=== PATIENT | female | born 1950 | race Caucasian/White ===

== ENCOUNTER → 2019-01-10 10:29 | Outpatient (CLI) | payer MEDICARE, SELFPAY ==
--- NOTE | 2019-01-10 | IMM_PTH ---
PATIENT: HOWARD LANZA LOC: [facility] U#:[id number] AGE/SX: 74/F ROOM: RE01/10/[address]: Dr. Eryn Peres MD : 1950 BED: DIS: SPEC #: [id number] RECD: 01/11/19 12:55 STATUS: SHARON REQ #: [id number] ESTEVAN: 01/10/19 00:[address]: Eryn Peres DEPT: IMMUNOHISTOCHEMISTRY RECD BY: Sophy Oconnor ENTERED: 01/11/19 12:56 SP TYPE: IMMUNO OTHR DR: Dr. Lizy Crowe MD Tissues: Left breast, NOS Procedures: CALPONIN-1 (add) CK8 (add) E-CAD (add) HER2 GISELLA (add) OK (add) P40 (add) ER (initial) PHYSICIAN & INSTITUTION [place] [phone] SPECIMEN INFORMATION: Tissue Source: Left breast tissue Clinical Info: Left breast 12 o'clock microcalcifications Specimen Number: [id number] #2 CPT code: 44176, 20134 x3, 49763 x3 METHODOLOGY: Deparaffinized sections of prefer/formalin-fixed tissue or PAP/DQ stained slides are incubated with monoclonal/polyclonal antibodies/oligonucleotide probes. Localization is made via biotin free immunoperoxidase method. Appropriate controls are performed and reacted as expected. Results on target cell population are indicated in the following table: RESULTS: ANTIBODY / CLONE RESULT E-Cad (ECH-6) positive CK8 ([id number]) positive P40 (BC28) positive Calponin-1 (NB105S) positive MORPHOMETRIC ANALYSIS ER (clone 6F11) Positive (variable, 0-95%, strong intensity) OK (clone 16/1E2) Positive (variable, 0-19%, moderate intensity) Her-2Neu (clone CB11) Positive (variable, 0-3+) The prognostic test for HER2 is performed on formalin-fixed paraffin embedded tissue. A 3+ (positive) staining pattern is defined as intense, homogeneous, complete, circumferential membranous staining in >10% of contiguous tumor cells. A similar weak (2+) staining pattern is interpreted as equivocal. MADHURI follow-up testing is recommended for all equivocal cases. Positivity/negativity for ER/OK is reported if > or < 1% of the tumor cells are immuno- reactive, respectively. The ASCO/CAP criteria is used for scoring. Reference: Journal of Clinical Oncology, 2013; 31:5826-4927 & 2010; 16:0381-4025. Duration of fixation: 8.5 Hrs; Sample Adequate: Yes. These assays have not been validated on decalcified tissues. Results should be interpreted with caution given the likelihood of false negativity on decalcified specimens. These tests were developed and their performance characteristics determined by [facility]. They may not have been cleared or approved by the U.S. Food and Drug Administration. The FDA has determined that such clearance or approval is not necessary. 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 SJ:radha 01/14/19
--- NOTE | 2019-01-10 11:00 | BRBX_PTH ---
PATIENT: HOWARD LANZA LOC: [facility] U#:[id number] AGE/SX: 74/F ROOM: RE01/10/[address]: Dr. Eryn Peres MD : 1950 BED: DIS: SPEC #: [id number] RECD: 01/10/19 11:37 STATUS: SHARON RERashad #: [id number] ESTEVAN: 01/10/19 11:[address]: Eryn Peres DEPT: SURGICAL PATHOLOGY RECD BY: Kevin Rea ENTERED: 01/10/19 13:38 SP TYPE: BREAST BX OTHR DR: Dr. Lizy Crowe MD Tissues: Left breast, NOS Procedures: Surgery Specimen Level IV HEADER OPERATION: Left stereotactic breast biopsy PRE-OP DIAGNOSIS: Left breast 12 o'clock microcalcifications TISSUE SUBMITTED: Left breast tissue ISCHEMIC TIME: 1 minute FIXATION TIME: 8.5 hours MICROSCOPIC DIAGNOSIS Left breast, 12 o'clock, microcalcifications, stereotactic core biopsy: Ductal carcinoma in situ with the following characteristics: Pattern - solid, comedo and cribriform Nuclear Grade - 2-3 (intermediate to high) Necrosis - present, central (expansive comedo necrosis). Calcifications - present See comment. AMINATA:radha 01/11/19 COMMENT Many of the glands are completely replaced by comedo necrosis and calcification. Immunohistochemistry ([id number]) supports the above diagnosis. ER/MN/Nof6zqy studies are being performed on sections of tumor and the results from this study will be reported separately ([id number]). Please make reference to previous specimen ([id number]) right breast, mastectomy with diagnosis of invasive ductal carcinoma. Case has been reviewed in consultation with Dr. Aguirre who concurs with the above diagnosis. IDC:AM MICROSCOPIC DESCRIPTION Slides are reviewed. GROSS DESCRIPTION Received is one container labeled with the patient's name and not further designated. The specimen consists of multiple elongated fragments of tracey-yellow fibroadipose tissue that in aggregate measure 4 x 3 x 0.3 cm. The entire specimen is submitted in two cassettes. / AMINATA:radha 01/10/19 TC:0 CPT: 96479
--- NOTE | 2019-01-10 11:34 | PCM.OPRPT ---
Report of Operation Date of Procedure: 01/10/19 Pre-Operative Diagnosis: abnormal left breast mammograms with calcifications Post-Operative Diagnosis: same Surgery/Procedure Performed:: left stereotactic breast biopsy Description of Surgical Findings:: centrally located abnormal calcifications of left breast Type of Anesthesia:: Local - 1% xylocaine Specimen's removed: left breast tissue Estimated Blood Loss (mL): < 1 ml Fluids Replaced: none Description of Procedure: After informed consent was given, the patient was brought into the breast biopsy suite. Appropriate time out protocol was followed. She was then placed in the prone position on the stereotactic biopsy table. The patient?s left breast was then placed in the hole at the head of the table. A patented hogshead assembler compression mammogram was then obtained in the CC/lateral view. The suspicious radiological lesion was then identified. Stereo pictures of the lesion were then taken for XYZ coordinates. The Mammotome biopsy stylus was then positioned where it would be entering into the patient?s breast. The skin at this site was then cleansed with a surgical skin preparation. The skin and subcutaneous tissues at this site were then infiltrated with 1% xylocaine. A small skin incision was made with an 11 blade scalpel. The biopsy stylus was then positioned into the patient?s breast at the proper coordinates of depth. Using the Mammotome vacuum-assist device, several core samples of breast tissue were obtained. A specimen mammogram was the obtained and revealed that the suspicious lesion was within the specimen. A hemostatic marker clip was then placed into the biopsy cavity and a patented hogshead assembler film revealed that it was properly deployed. The patient was then placed in the supine position and pressure was applied to the breast until no active bleeding was noted. Steristrips were applied to reapproximate the skin. A unilateral mammogram in the CC and MLO view were then taken which revealed that the marker clip was in the same area as the previous suspicious lesion. The patient tolerated the procedure well and was discharged from the breast biopsy suite in good condition. - Complications none noted
== END ==
PROVIDERS: Family Provider Internal Medicine; PCP Internal Medicine; Referring Provider Surgery; Visit Provider Surgery
DX: C50.912 Malignant neoplasm of unspecified site of left female breast (principal); G47.33 Obstructive sleep apnea (adult) (pediatric); K21.9 Gastro-esophageal reflux disease without esophagitis; E66.09 Other obesity due to excess calories; Z68.34 Body mass index [BMI] 34.0-34.9, adult; F32.9 Major depressive disorder, single episode, unspecified; F17.290 Nicotine dependence, other tobacco product, uncomplicated; Z79.82 Long term (current) use of aspirin; Z79.899 Other long term (current) drug therapy; Z85.3 Personal history of malignant neoplasm of breast; Z90.11 Acquired absence of right breast and nipple
CPT/HCPCS: 19081; 88305; 88341; 88342; J7050; A4648

== ENCOUNTER 2019-02-18 07:38 | Observation (INO) | payer MEDICARE, SELFPAY ==
[2019-02-15 15:30] LABS: Hematocrit 38.5 % (37-47); Hemoglobin 12.8 g/dL (12.0-15.0); Mean Corp Hgb Conc 33.2 g/dL (32-36); Mean Corpuscular Hgb 29.4 pg (27.0-32.0); Mean Corpuscular Volume 88.3 fL (81-99); Mean Platelet Vol. 9.4 fl (6.2-12.0); Platelet Count 335 K/mm3 (150-450); RBC Distribution Width CV 12.5 % (11.6-14.6); RBC Distribution Width SD 40.7 fl (35.1-43.9); Red Blood Count 4.36 M/mm3 (4.2-5.4); White Blood Count 7.1 K/mm3 (4.4-11.0)
[2019-02-15 15:57] LABS: Anion Gap 5 (5-15); BUN 16 mg/dL (7-18); BUN/Creat Ratio 20.8 RATIO (10-20); Calcium,Total 8.7 mg/dL (8.5-10.1); Chloride 108 mmol/L (98-107); Creatinine, Serum 0.77 mg/dL (0.55-1.02); EST Glomerular Filtration Rate 80 mL/min (>60); Est Glom Filt Rate - Afr Amer 96 mL/min (>60); Glucose 104 mg/dL (74-106); Potassium 3.5 mmol/L (3.5-5.1); Sodium Level 143 mmol/L (136-145)
--- NOTE | 2019-02-17 09:13 | HP.PCM_ITS ---
History and Physical Date of Admission: 02/18/19 Deann Steiner 1950 ? ? REFERRING PHYSICIAN: Lizy Crowe MD ? CHIEF COMPLAINT: Newly diagnosed DCIS of left breast ? HPI: Deann is s/p left stereotactic breast biopsy 01/10/19 with findings of DCIS, nuclear grade 2-3, necrosis present, ER/MA positive. She is also s/p right mastectomy and right sentinel lymph nodes - 02/06/17 for Stage I - T1b N0, ER positive She initially wanted revision of her right mastectomy - dog ears - and I have offered this to her in conjunction with her future surgery, but then she declined. ? ? PAST MEDICAL HISTORY ? Bacterial pneumonia, unspecified ? LLL ? Broken arms October 2008 ? Broken wrist October 2008 ? Carpal tunnel syndrome ? ? Cervical spondylosis without myelopathy 11/14 ? Chronic rhinitis ?? non-allergic ? Corpus luteum cyst or hematoma 08/14 left ovary 2 cysts per US and CT ? Depression ? ? Disorder of bone and cartilage, unspecified 07/16 ? per bone density study ? Esophageal reflux ?? esophagram negative ? Infiltrating ductal carcinoma of right breast (HCC) 02/17/2017 ? Myalgia and myositis, unspecified ? ? Obstructive sleep apnea (adult) (pediatric) ? 09/14 polysmngm repeated, nasal CPAP per Dr. Henderson ? Other affections of shoulder region, not elsewhere classified 04/13 ? subacromial bursitis, adhesive capsulitis left shoulder ? Other kyphoscoliosis and scoliosis 06/12 ? lumbar ? Polyp of nasal cavity 09/14 ? sinus CT ? Solitary cyst of breast ?? ruo quad, multiple mammogm ? Swelling, mass, or lump in chest ? 4cm nodule RUL CXR , negative CT except scarring LLL, mild emphusema ? Tachycardia, unspecified ? 2d echo WNL ? ? PAST SURGICAL HISTORY APPENDECTOMY ? ? COLONOSCOP W/ OR W/O BRSH SPEC ? 05/03/13 COMBINED ANT/POST COLPORRHAPHY ? ? Dr. Alicia Jasso EGD W/O OR W/BRUSH/WASH ? 05/03/13 LAP CHOLECYSTECT/CHOLANGIOGRAPHY ? 05/27/2009 ? acute/gangrenous, normal IOC LIGATE FALLOPIAN TUBE ? ? MASTEC, simple Right 02/06/2017 MA ANESTH,CLEFT PALATE REPAIR ? ? REMOVAL OF OVARY(S) ? ? REVISE MEDIAN N/CARPAL TUNNEL SURG ? 09/14 ? Carpal tunnel decomp right REVISE MEDIAN N/CARPAL TUNNEL SURG ? 10/14 ? Carpal tunnel decomp left ? ? Current Outpatient Medications: anastrozole (ARIMIDEX) 1 mg tablet Take 1 tablet by mouth daily. zolpidem (AMBIEN) 5 mg tablet Take 1/2 to 1 tablet by mouth at bedtime as needed for insomnia. omeprazole (PRILOSEC) 20 mg capsule Take 1 capsule by mouth once daily. PARoxetine (PAXIL) 20 mg tablet Take 1 tablet by mouth daily for depression potassium chloride SR (MICRO-K) 8 mEq cpER Take 1 capsule by mouth once daily. fluticasone (FLONASE) 50 mcg/actuation nasal spray Use 2 Sprays in each nostril once daily. Rinse mouth after use. ergocalciferol, vitamin D2, (DRISDOL) 50,000 unit capsule Take 1 capsule by m outh once each week. hydroCHLOROthiazide (HYDRODIURIL, ESIDRIX) 25 mg tablet Take 1 tablet by mouth daily for swollen legs polyethylene glycol 3350 (MIRALAX, GLYCOLAX) 17 gram/dose powder Take 17 g by mouth once daily. ADULT LOW DOSE ASPIRIN 81 MG ORAL TBEC Take one(1) tablet daily. loratadine (CLARITIN) 10 mg tablet Take 1 tablet by mouth once daily. COMPOUNDED PRESCRIPTION Breast prosthesis- mastectomy bra cloNIDine HCl (CATAPRES) 0.1 mg tablet Take 1 tablet by mouth once daily. (Patient not taking: Reported on 11/21/2018 hydrocortisone 2.5 % cream Apply 1 application to affected area twice daily. Location: left breast (Patient not taking: Reported on 11/21/2018 docusate sodium (COLACE) 100 mg capsule Take 1 capsule by mouth twice daily as needed for Constipation. (Patient not taking: Reported on 11/21/2018 ? ? ALLERGIES: Amoxicillin; Evista [Raloxifene Hcl]; Levaquin [Levofloxacin]; Milk; Naprosyn [Naproxen]; Septra [Sulfamethoxazole-Trimethoprim]; Vioxx [Rofecoxib]; Zithromax [Azithromycin] ? PERSONAL HISTORY: Social History Socioeconomic History Marital status: Spouse name: Terrell Number of children: 2 Years of education: 05 Occupation: Disabled Tobacco Use Smoking status: Former Smoker Packs/day: 2.00 Years: 20.00 Pack years: 40 Types: Cigarettes Quit date: 02/23/1987 Tobacco comment: Smokes an e-cigarette with nicotine. FAMILY HISTORY ? Cerebral Embolism Mother ? ? None Father ?? benign brain tumor, possible liver disease ? Cancer Brother ? ? Cancer Brother ? ? Cancer Brother ? ? Breast Cancer Sister ? REVIEW OF SYSTEMS: General: The patient denies fatigue, denies weight loss, denies weight gain, denies feeling hot, and denies feelings of cold. Eyes: The patient denies glaucoma, denies eye injury/surgery, wears glasses or contacts. Ear/Nose/Throat: The patient denies allergies, denies hayfever, denies ear infections, and denies bloody noses. Cardiovascular: The patient denies chest pain, denies heart disease, denies high blood pressure,denies cardiac stent, denies prior heart attack, denies irregular heart beat, denies high cholesterol, denies poor circulation, denies heart failure, other cardiac issues, denies claudication, denies cold feet, denies peripheral arterial stent. Respiratory: The patient denies tuberculosis, denies pneumonia, denies frequent cough, denies pulmonary embolism, denies shortness of breath, and denies coughing up blood. Gastrointestinal: The patient denies difficulty swallowing, NOTES acid reflux, NOTES ulcers, denies vomiting, denies jaundice/hepatitis, denies gallbladder problems, denies black or tarry stools, denies hemorrhoids, denies bleeding from rectum, denies diverticulitis, NOTES constipation, denies diarrhea, denies loss of stool control, and denies hernias. Kidney/Bladder: The patient denies kidney stones, denies urine infections, and denies bloody urine. Skin: The patient denies a history of skin cancer, denies bleeding/changing moles, and denies a history of skin rash. Neurologic: The patient denies a history of epilepsy/convulsions, denies headaches, denies head/spinal injuries, and denies stroke/TIA. Psychiatric: The patient denies psychiatric medications, NOTES depression, and denies voices, denies substance abuse. Endocrine: The patient denies thyroid disorders, denies diabetes, and denies hormonal problems. Hematologic: The patient denies a history of bruising, denies bleeding, and denies anemia, denies blood clots. Infections: The patient denies a history of measles and mumps, denies rheumatic fever, and denies sexually transmitted diseases. Musculoskeletal: The patient denies back pain/injury, denies back problems, denies sciatica, denies knee/foot trouble, denies arthritis, or denies ? PHYSICAL EXAMINATION: General: The patient is 68 year old female, well nourished, well hydrated in no acute distress. The patient is oriented to time, place, and person. VITALS: Blood pressure 134/66, pulse 87, temperature 36.2 ?C (97.1 ?F), temperature source Temporal, resp. rate 16, height 168.5 cm (5' 6.34), weight 95.5 kg (210 lb 9.6 oz), SpO2 96 %. Body mass index is 33.65 kg/m?. Head ? Normocephalic. EOM intact with sclera clear and no icterus noted. Mouth with mucus membranes moist. Neck - supple with no jugular venous distention noted. Trachea is midline. No carotid bruits noted. No thyroid enlargement or thyroid nodules detected. No masses noted. Chest/breast ? right breast is surgically absent - no masses noted of this area - redundant tissue noted (dog ear), no suspicious skin lesions noted, no nipple discharge on left and nipple is everted, no palpable breast masses noted on left,healed biopsy site Lungs ? clear to auscultation. Normal breath sounds. No rales/rhonchi/wheezing noted. No labored breathing noted, such as retractions. No cough heard. Heart ? normal S1 and S2 auscultated. No rubs/clicks/murmurs noted. Regular rate. Abdomen ? soft and benign. Normal bowel sounds. No abdominal bruits noted. Difficult to determine if any masses or organomegaly due to body habitus. Extremities ? no calf tenderness noted. No pitting edema noted. Skin ? normal skin integrity. Lymph ? no cervical adenopathy detected, no supraclavicular adenopathy detected, no axillary adenopathy detected Neurological ? gait normal, no focal deficits noted Psych ? calm and appropriate RADIOLOGIC STUDIES: As Noted ? ? IMPRESSION: newly diagnosed left DCIS, history of right breast cancer ? PLAN: I have discussed the above with the patient. I have offered options for treatment - lumpectomy followed by radiation therapy versus mastectomy. Patient does not want radiation. She wishes to proceed with mastectomy I have explained the procedure to the patient. I have counseled the patient as to the risks of the procedure, including but not limited to: infection, bleeding, injury to any blood vessels/nerves, scar tissue, cosmetic deformity, wound infections, seroma, lymph leak, complications of anesthesia, etc. ? the patient understands. The patient wishes to proceed. I have answered all questions to the patient?s satisfaction and the patient has no further questions. ? Return to Clinic: The patient is instructed to follow-up with me after the above procedure.
[2019-02-18] VITALS (10 sets, daily range): BP systolic 118–193; BP diastolic 66–89; PULSE 62–95; RESP 14–18; TEMP 36.4–37.3; O2SAT 2–98; BMI 33.5; BMI 33.8
[2019-02-18] MEDS: Lactated Ringers 1,000 ML 75 ML IV ×3 (07:20→15:44)
--- NOTE | 2019-02-18 07:30 | BREAST_PTH ---
PATIENT: HOWARD LANZA LOC: [facility] U#:[id number] AGE/SX: 68/F ROOM: [facility]318 RE02/18/[address]: Dr. Eryn Peres MD : 1950 BED: 1 DIS: 02/19/2019 SPEC #: [id number] RECD: 02/18/19 09:39 STATUS: SHARON REQ #: [id number] ESTEVAN: 02/18/19 07:[address]: Eryn Peres DEPT: SURGICAL PATHOLOGY RECD BY: Clint Yoon ENTERED: 02/18/19 11:17 SP TYPE: BREAST OTHR DR: Dr. Lizy Crowe MD Tissues: A - Left breast, NOS B - Right breast, NOS Procedures: Surgery Specimen Level IV Surgery Specimen Level V HEADER OPERATION: Breast mastectomy left, removal of right breast tissue, dog ear PRE-OP DIAGNOSIS: Newly diagnosed left DCIS, history of right breast cancer TISSUE SUBMITTED: A. Tissue left breast, B. Right breast dog ear MICROSCOPIC DIAGNOSIS A. Left breast, mastectomy: Ductal carcinoma in situ. Fibrocystic changes, adenosis and intraductal hyperplasia without atypia. Focal dystropic calcification. Changes consistent with previous biopsy site. See cancer summary below. B. Right breast dog ear tissue: A piece of fatty benign breast tissue, no pathologic diagnosis. Skin, no pathologic diagnosis. SJ:radha 02/21/19 DUCTAL CARCINOMA IN SITU SUMMARY: Specimen - total breast (including nipple and skin) Procedure - total mastectomy (including nipple and skin) Lymph node sampling - no lymph node present. Specimen integrity - single intact specimen Specimen laterality - left breast Tumor site - superior portion Size (extent) of DCIS - largest focus measures 2 x 1.1 cm in greatest dimension (measured microscopically) Number of blocks with DCIS - 4 Number of blocks examined - 14 Histologic type - ductal carcinoma in situ Architectural patterns - solid, comedo and cribriform pattern Nuclear grade - Grade 2-3 Necrosis - present, central (expansive comedo necrosis). Margins - margins uninvolved by ductal carcinoma in situ. The tumor is 1.2 cm away from the closest superior margin of excision. Treatment effect: Response to presurgical (neoadjuvant) therapy - no known presurgical therapy. Lymph nodes - no lymph nodes present. Additional Pathologic Findings - fibrocystic changes, adenosis and intraductal hyperplasia without atypia. Focal dystrophic calcification. Changes consistent with previous biopsy site. Ancillary Studies from previous specimen ([id number] / [id number]): ER - positive (variable, 0-95%, strong intensity) ND - positive (variable, 0-19%, moderate intensity) Her2 sabra ([facility]) - positive (variable, 0-3+) Microcalcifications - present in both DCIS and non-neoplastic tissue. Clinical history - Please make reference to previous specimen ([id number]) left breast, 12 o'clock, microcalcification, stereotactic core biopsy with diagnosis of ductal carcinoma in situ. Pathologic Staging: pTis(DCIS) pNx Mx The above summary is in compliance with [employer] [place] [employer] (CAP) Cancer Protocols Checklist and [place] [employer] Committee on Cancer (AJCC), Staging Manual, 8th Ed. COMMENT Please make reference to previous specimen ([id number]) right breast, mastectomy with diagnosis of invasive ductal carcinoma. Case has been reviewed in consultation with Dr. Aguirre who concurs with the above diagnosis. IDC:AM MICROSCOPIC DESCRIPTION Slides are reviewed. GROSS DESCRIPTION A - Received in fixative is one container labeled with the patient's name and designated left breast. The specimen consists of a mastectomy measuring 24 x 17 x 5 cm and weighing 1179 gm. The anterior surface contains grossly unremarkable skin containing nipple and areola. The skin fragment measures 19 x 9 cm. The specimen is differentially inked as follows: superior - blue, inferior - green and posterior surface - black. Serial sections reveal a tracey-white, firm lesion measuring 1.5 x 1 x 1 cm and located 1.2 cm from its closest (superior) margin of excision. Adjacent to the lesion is a gel-filled cystic space measuring 1 cm in greatest dimension. The remainder of the breast parenchyma is tracey-yellow and interrupted focally by dense, white fibrous streaks. Yacht Master sections are submitted in 14 cassettes as follows: 1 - nipple and areola, 2 - perpendicular superior and inferior margins, 3 - perpendicular medial and posterior margin, 4 - perpendicular lateral margin, 5-7 - mass, 8-10 - soft tissue adjacent to mass, 11-14 - nutrition representative sections of uninvolved breast parenchyma away from mass. Note, sections are submitted after additional fixation. / AM:radha 02/19/19 B - Received in fixative is one container labeled with the patient's name and designated right breast dog ear tissue. The specimen consists of an ellipse of light tracey excised skin measuring 8.5 x 2.2 cm. Attached to this is an irregular fragment of tracey-yellow fibrofatty tissue measuring 11 x 8 x 3 cm. Serial sections do not reveal mass lesions. Yacht Master sections are submitted in four cassettes. / AM:radha 02/19/19 TC:0 CPT: 29132, 44525
[2019-02-18] MEDS: Bupiv/Epi 0.25% 30 ML Vial (09:00)
--- NOTE | 2019-02-18 09:17 | OP.PCM_ITS ---
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 Post-Operative Diagnosis: same as above Surgery/Procedure Performed:: left breast simple mastectomy, excision of dog ear of right mastectomy site area Description of Surgical Findings:: right dog ear - medially - excised, no palpable lesion of left breast [employer]: Shira Vicente Type of Anesthesia:: General Anesthesiologist: Luis Alberto Bear Specimen's removed: dog ear of right mastectomy site, left breast Drains: 15 Fr drains x 2 - one in left mastectomy bed, one directed to axilla Estimated Blood Loss (mL): 30 ml Fluids Replaced: 1000 ml RL Description of Procedure: After informed consent was given the patient was brought to the OR. Appropriate time out protocol was followed. She was then placed in the supine position on the operating room table. She was then placed under general anesthesia. The patient's chest/neck and upper abdomen was then prepped with a sterile surgical skin preparation and appropriate sterile surgical drapes were placed. The right mastectomy site dog ear was approached first. The skin and soft tissues were infiltrated with local anesthetic. An elliptical skin incision was made with a 15 blade scalpel to encompass the dog ear. The incision was carried down to the subcutaneous tissues. Electrocautery was used to excise the excess soft tissues. Hemostasis was controlled with electrocautery. The subdermal tissues were then approximated with 2-0 vicryl suture in an interrupted simple fashion. The skin was reapproximated with 4-0 monocryl in a subcuticular fashion. Dermibond and steristrips were placed for reinforcement of skin closure. The left mastectomy was then done next. A skin incision was made to include the periareolar tissues as well as to encompass the original biopsy incision. This was done with a 10 blade scalpel after the skin was marked out with a marking pen and also the skin and subcutaneous tissues were infiltrated with local anest hetic. The skin incision was carried through to the subcutaneous tissues using electrocautery. Any hemorrhage was controlled with electrocautery. The medial and superior skin flap was created by the subcutaneous fat from the breast tissue using electrocautery. Any bleeding vessels were controlled with electrocautery. Larger vessels were ligated with vicryl suture. Dissection then continued to the level of the left lateral sternal border. The superior level of dissection was carried down to the clavipectoral fascia. The inferior skin flap was developed in the same fashion and the breast tissue was to its inferior border from the subcutaneous fat. The entire breast tissue and the pectoralis fascia were then from the pectoralis muscles starting medially and continuing laterally. The dissection included the interpectoral juan tissue. Once dissection was achieved to the lateral aspect of the breast, then the inferior portion of the lateral tissue was transected leaving the breast tissue connected only by the superior lateral tissue (tail of Burnett) of the breast. Blunt dissection was done on the pectoralis muscle the tail of Burnett breast tissue from the muscle. The breast tissue was then transected and the breast from the chest wall. It was then passed to the back table to be forwarded to Pathology for analysis. Hemostasis of the area of dissection was then achieved with electrocoagulation. The mastectomy bed was vigorously irrigated with sterile water and all irrigation solution was removed. A 15 Fr drain was placed in the axilla and another was placed along the mastectomy bed and these drains were brought out through separate skin incisions and sutured to the skin using nylon suture. The superior and inferior skin flaps were then approximated together using interrupted vicryl suture along the dermis of the skin edges. The skin incision was then reapproximated with 4- 0 monocryl in a running subcuticular fashion. Cavilon and steristrips were then placed to reinforce the skin closure and proper sterile dressings were applied. Patient was then brougnt to the Recovery Room in stable condition. - Complications none noted - Admit VTE Documentation VTE Present on Admission: Yes VTE Mechan Device Prophylaxis: SCD's
--- NOTE | 2019-02-18 18:58 | DCINST_ITS ---
Discharge Diet: No Restrictions Discharge Activity: Return to Normal Activity, May not drive while taking narcotic pain medications. Lifting Restrictions: no lifting with left arm greater than 5 pounds until further notice Additional Activity Instructions:: Sponge bathe only while drains are in place. Use incentive spirometer at home. ambulation is encouraged. Empty drainage bulbs twice a day and as per needed Call your doctor if your incision/area has: Continuous Slow Oozing, Foul Smelling Discharge Call your doctor if you observe: Fever of 101 or Higher Additional Dressing/Incision Instructions:: Leave dressings in place. Sponge bathe onlly. Empty bulb-drains 1-2 times per day and as per needed Allergies/Adverse Reactions: Allergies amoxicillin Allergy (Verified 02/18/19 06:38) Unknown azithromycin [From Zithromax] Allergy (Verified 02/18/19 06:38) Unknown levofloxacin [From Levaquin] Allergy (Verified 02/18/19 06:38) Unknown milk Allergy (Verified 02/18/19 06:38) Unknown naproxen [From Naprosyn] Allergy (Verified 02/18/19 06:38) Unknown raloxifene HCl [From Evista] Allergy (Verified 02/18/19 06:38) Unknown rofecoxib [From Vioxx] Allergy (Verified 02/18/19 06:38) Unknown sulfamethoxazole [From Septra] Allergy (Verified 02/18/19 06:38) Unknown trimethoprim [From Septra] Allergy (Verified 02/18/19 06:38) Unknown Medications to take at Discharge Hydrochlorothiazide [Hctz] 25 mg PO DAILY 01/26/16 Omeprazole [Prilosec] 20 mg PO DAILY 01/26/16 Paroxetine HCl 20 mg PO DAILY 01/26/16 Potassium Chloride [K-Tab ER] 8 meq PO DAILY 01/26/16 Anastrozole [Arimidex] 1 mg PO DAILY 02/12/19 Aspirin [Aspir 81] 81 mg PO DAILY 02/12/19 Ergocalciferol (Vitamin D2) [Vitamin D2] 50,000 unit PO QWEEK 02/12/19 Loratadine 10 mg PO DAILY 02/18/19 Hydrocodone Bitart/Apap 5-325 [[place] 5MG-325MG] 1 tab PO Q8H PRN PRN 5 Days #15 tab 02/19/19 The following prescriptions were given: Hydrocodone Bitart/Apap 5-325 [[place] 5MG-325MG] 1 tab PO Q8H PRN PRN 5 Days #15 tab PRN Reason: Mod-Severe Pain (-03/21) Prescription Printed Primary Care Physician: Lizy Crowe MD [Primary Care Provider] - Please Follow Up With: Eryn Peres MD - When: to be seen on February 21, please call for time, thank you
[2019-02-19 02:53] VITALS: BP 130/62; PULSE 62; RESP 18; TEMP 36.6; O2SAT 94
[2019-02-19] MEDS: Lactated Ringers 1,000 ML 75 ML IV (05:22)
[2019-02-19 07:09] VITALS: O2SAT 93
--- NOTE | 2019-02-19 07:17 | PCM.PN.SRG ---
Subjective: Patient is feeling overall well lower oxygen saturation while sleeping - I have encouraged incentive spirometry felt hot this morning, but afebrile - Physical Exam General: Alert, Oriented x3 HEENT: Atraumatic Oral: Moist Mucosa Neck: Supple Lungs: Normal air movement, - - chest dressing intact - no drainage noted - LUDY outputs are serosanguinous Vital Signs Temp Pulse Resp BP Pulse Ox 97.9 F 62 18 130/62 H 94 02/19/19 02:53 02/19/19 02:53 02/19/19 02:53 02/19/19 02:53 02/19/19 02:53 Oxygen Flow Rate (L/min) 3 Oxygen Delivery Method Nasal Cannula Weight: 95.6 kg Body Mass Index (BMI) 33.8 Intake and Output for Last 24 Hours 02/17/19 02/18/19 02/19/19 23:59 23:59 23:59 Intake Total 4493.00 / 4493.00 555.25 / 555.25 Output Total 70 / 70 40 / 40 Balance 4423.00 / 4423.00 515.25 / 515.25 Medical Necessity - Tobacco Use Smoking Status: Former smoker Tobacco Use: Vapor Assessment/Plan Impression: s/p left simple mastectomy and removal of right dog ear Plan: d/c to home follow up with me later this week
[2019-02-19 07:53] VITALS: BP 128/52; PULSE 59; RESP 18; TEMP 36.6; O2SAT 97
[2019-02-19] MEDS: hydroCHLOROthiazide 25 MG Tablet PO (10:09)
[2019-02-19] MEDS: Loratadine 10 MG Tablet PO (10:09)
[2019-02-19] MEDS: Paroxetine 20 MG Tablet PO (10:10)
[2019-02-19] MEDS: Pantoprazole Sodium 20 MG Tablet PO (10:10)
[2019-02-19 10:20] VITALS: O2SAT 89; O2SAT 97
[2019-02-19 13:00] VITALS: BP 120/61; PULSE 62; RESP 18; TEMP 36.7
== END 2019-02-19 12:15 | disposition home or self-care (01) ==
LOC: MS3 08:03
PROVIDERS: Anesthesiology; Admitting Provider Surgery; Family Provider Internal Medicine; PCP Internal Medicine; Referring Provider Surgery; Visit Provider Surgery
PROC: (CPT 19307; principal; 2019-02-18 07:15)
DX: D05.12 Intraductal carcinoma in situ of left breast (principal); G47.33 Obstructive sleep apnea (adult) (pediatric); K21.9 Gastro-esophageal reflux disease without esophagitis; F17.290 Nicotine dependence, other tobacco product, uncomplicated; Z85.3 Personal history of malignant neoplasm of breast; Z79.899 Other long term (current) drug therapy; Z79.82 Long term (current) use of aspirin; Z17.0 Estrogen receptor positive status [ER+]
CPT/HCPCS: 15839; 19303; 36415; 80048; 85027; 88305; 88307; 93005; 94762; 96361; 96365; 96366; 99218; J7120; G0378; G0379; J2405

== ENCOUNTER 2022-11-08 20:12 | Emergency (ER) | payer MEDICARE, MEDICAID, SELFPAY ==
[2022-11-08 20:13] VITALS: BP 143/65; PULSE 79; RESP 15; TEMP 36.2; O2SAT 97
[2022-11-08 20:42] VITALS: BMI 32.7
[2022-11-08 21:29] LABS: Absolute Lymphocyte Count 1.48 X10^3/uL (0.83-4.51); Absolute Neutrophil Count 5.6 X10^3/uL (2.0-7.7); Basophil# 0.06 X10^3/uL; Basophil% 0.8 % (0-1); Eosinophil# 0.01 X10^3/uL; Eosinophils% 0.1 % (0-5); Hematocrit 37.6 % (37-47); Hemoglobin 12.4 g/dL (12.0-15.0); Lymphocyte # 1.48 X10^3/ul (0.83-4.51); Lymphocyte % 18.8 % (19-41); Mean Corpuscular Hgb 30.2 pg (27.0-32.0); Mean Corpuscular Volume 91.7 fL (81-99); Monocyte# 0.77 X10^3/uL; Monocyte% 9.8 % (0-10); NRBC Flagged by Analyzer 0 % (0-5); Neutrophil # 5.55 X10^3/uL (2.7-7.7); Neutrophil % 70.2 % (47-70); Platelet Count 357 K/mm3 (150-450); RBC Distribution Width SD 43.2 fl (35.1-43.9); White Blood Count 7.9 K/mm3 (4.4-11.0)
--- NOTE | 2022-11-08 21:30 | RAD_ITS ---
STUDY: X-RAY CHEST REASON FOR EXAM: Female, 72 years old. leg edema TECHNIQUE: Single frontal view of the chest. COMPARISON: January 27, 2016 FINDINGS: Lungs are hyperaerated. Surgical clips right axilla. The lungs are clear and expanded. There is no demonstrated pleural abnormality. Normal size heart. Normal mediastinum and brooke. Normal visualized pulmonary arteries. Normal visualized aortic arch and descending thoracic aorta. Normal visualized thoracic spine. Multiple rib fractures on the right. There is no demonstrated abnormality of the visualized soft tissue structures of the upper abdomen. RAD/Chest 1 View (Portable) IMPRESSION: COPD. No acute disease. Electronically Signed: Wilbert Montoya MD at 22:14 EDT ,
[2022-11-08 21:51] LABS: Anion Gap 5 (5-15); BUN 17 mg/dL (7-18); BUN/Creat Ratio 22.5 RATIO (10-20); Calcium,Total 9.3 mg/dL (8.5-10.1); Chloride 102 mmol/L (98-107); Creatinine, Serum 0.76 mg/dL (0.55-1.02); EST Glomerular Filtration Rate 80 mL/min (>60); Est Glom Filt Rate - Afr Amer 97 mL/min (>60); Glucose 109 mg/dL (74-106); Potassium 3.6 mmol/L (3.5-5.1); Sodium Level 138 mmol/L (136-145); Troponin-I HS 5 pg/mL (3.0-54.0)
[2022-11-08 21:52] LABS: BNP,B-Type NATRIURETIC PEPTIDE 23.6 pg/mL (0-100)
--- NOTE | 2022-11-08 22:00 | EDS_ITS ---
HPI History of Present Illness Chief Complaint: General Illness Narrative Narrative: 72-year-old female presenting with back pain which she has had for about 2 weeks. She saw her primary care physician who ordered x-rays and she was told to come either to [facility] or to [place] and she went to the urgent care today. She was sent to the emergency room because she has complaint in addition to the back pain of hip pain and lower extremity edema which has been present for about 6 months. She denies any chest pain or shortness of breath. She states that her primary care physician told her to wear compression hose and she states she is not going to wear them. No history of CHF. No abdominal pain, nausea, vomiting. No urinary or vaginal complaints. No constipation or diarrhea. Patient has been taking some [place] from 2019 when she had a mastectomy. PFSH [facility] Home Medications hydrochlorothiazide 25 mg tablet 25 mg PO DAILY 01/26/16 [History Last Taken Unknown] omeprazole 20 mg capsule,delayed release 20 mg PO DAILY 01/26/16 [History Last Taken 02/06/17 07:30] paroxetine HCl 20 mg tablet 20 mg PO DAILY 01/26/16 [History Last Taken Unknown] potassium chloride 8 mEq tablet,extended release (K-Tab) 16 meq PO BID 01/26/16 [History Last Taken Unknown] aspirin 81 mg tablet,delayed release 81 mg PO DAILY 02/12/19 [History Last Taken Unknown] ergocalciferol (vitamin D2) 1,250 mcg (50,000 unit) capsule 50,000 unit PO QWEEK 02/12/19 [History Last Taken Unknown] loratadine 10 mg capsule 10 mg PO DAILY 02/18/19 [History Last Taken Unknown] gabapentin 400 mg capsule 400 mg PO QHS 11/08/22 [History Last Taken Unknown] lidocaine 5 % topical patch (Lidoderm) 1 patch topical DAILY #30 ea 11/08/22 [Rx Last Taken Unknown] oxycodone 5 mg capsule 5 mg PO BID PRN pain 3 days #12 caps 11/08/22 [Rx Last Taken Unknown] Allergy/AdvReac Type Severity Reaction Status Date / Time amoxicillin Allergy Unknown Verified 11/08/22 20:21 azithromycin [From Zithromax] Allergy Unknown Verified 11/08/22 20:21 levofloxacin [From Levaquin] Allergy Unknown Verified 11/08/22 20:21 milk Allergy Unknown Verified 11/08/22 20:21 naproxen [From Naprosyn] Allergy Unknown Verified 11/08/22 20:21 raloxifene HCl [From Evista] Allergy Unknown Verified 11/08/22 20:21 rofecoxib [From Vioxx] Allergy Unknown Verified 11/08/22 20:21 sulfamethoxazole Allergy Unknown Verified 11/08/22 20:21 [From Septra] trimethoprim [From Septra] Allergy Unknown Verified 11/08/22 20:21 Social History Smoking Status: Current every day smoker tobacco type: e-cigarettes EXAM Physical Exam Const Vital Signs: 11/08/22 20:13 11/08/22 20:48 Temperature 97.2 F L Temperature Source Temporal Pulse Rate 79 Respiratory Rate 15 Respiratory Effort Normal Non-Labored Respiratory Pattern Normal Blood Pressure 143/65 H Blood Pressure Mean 91 Pulse Ox 97 Oxygen Delivery Method Room Air Positive well nourished and obese Nutritional Appearance: obese HEENT Reports moist mucous membranes Eyes PERRL and EOMs intact bilaterally Neck no lymphadenopathy Chest Wall inspection of chest normal Resp normal respiratory effort and clear to auscultation bilaterally Cardio regular rate and regular rhythm GI normal to inspection, nondistended, normoactive bowel sounds Back/Spine Lumbar Spine / Lower Back: lumbar spinal tenderness L1, L2 and L3 and paraspinal muscle tenderness bilateral L4 and L5 Extremity General Extremety ED: Yes edema and tenderness General Extremity: edema Neuro oriented x3 and CN's II-XII intact bilaterally Motor Exam: strength 5/5 throughout Psych mental status grossly normal Skin no rashes or lesions noted and no wounds MDM MDM MDM Narrative Medical decision making narrative: Patient with tenderness in the lower back differential for this is compression f racture, lumbar strain. There is also bilateral hip pain which is likely arthritic in nature. Patient was medicated with morphine and Zofran to control her pain. Patient also having lower extremity edema for several months. He is not having any shortness of breath however. We will evaluate her for CHF. CBC to assess white blood cell count, hemoglobin, platelets, differential. BMP to assess renal function, electrolytes, glucose, anion gap. High-sensitivity troponin, BNP to assess for cardiac strain. EKG will also be obtained. Chest x-ray to rule out CHF. X-rays of the lumbar spine and bilateral hips as this is where the patient is having pain. CBC shows a normal white blood cell count 10.9. Hemoglobin stable at 12.4. Platelets normal at 357. Renal function electrolytes are normal. Troponin 5. BNP 23.6. Chest x-ray my interpretation shows no acute cardiopulmonary process. Radiologist interprets this and agrees. EKG shows a normal sinus rhythm with occasional PVCs at a rate of 71 bpm on my interpretation. Bilateral hip x-rays of my interpretation showed no acute fractures or subluxation. X-rays of the lumbar spine do show on my interpretation L1-L3 compression deformities. Patient states he does not have a history of compression fracture so these are new for her. Is likely why she is having increased pain over the last couple of weeks. Patient states he is ambulatory and does have a walker. She does not want to stay in the hospital. She currently has follow-up in January with a spinal specialist she was referred to. I will give her Dr. Guillermo's information as well to see if she can follow-up sooner. She was given oxycodone and Lidoderm patches. Return precautions were discussed. Her lab work-up today does not show any evidence of CHF. She has lower extremity edema. I recommended to her that she wear her compression stockings as her primary care physician had requested as well. Impression: 1. Bilateral hip pain 2. L1-L3 compression fractures 3. Lower extremity edema Lab Data Labs: Laboratory Results - last 24 hr 11/08/22 11/08/22 11/08/22 21:10 21:10 21:10 WBC 7.9 RBC 4.10 L Hgb 12.4 Hct 37.6 MCV 91.7 MCH 30.2 MCHC 33.0 RDW Std Deviation 43.2 RDW Coeff of Jackelin 13.0 Plt Count 357 MPV 9.0 Immature Gran % (Auto) 0.300 Neut % (Auto) 70.2 H Lymph % (Auto) 18.8 L Rabun % (Auto) 9.8 Eos % (Auto) 0.1 Baso % (Auto) 0.8 Absolute Neuts (auto) 5.6 Absolute Lymphs (auto) 1.48 Nucleated RBC % 0 Sodium 138 Potassium 3.6 Chloride 102 Carbon Dioxide 31.0 Anion Gap 5 BUN 17 Creatinine 0.76 Estim Creat Clear Calc 48.30 Est GFR (MDRD) Af Amer 97 Est GFR (MDRD) Non-Af 80 BUN/Creatinine Ratio 22.5 H Glucose 109 H Calcium 9.3 Troponin I High Sens 5 B-Natriuretic Peptide 23.6 Radiography Diagnostic Testing: Clinical Impression(s) from Imaging Studies Chest X-Ray 11/08/22 21:30 IMPRESSION: COPD. No acute disease. Electronically Signed: Wilbert Montoya MD at 22:14 EDT Reading Location ID and State: [facility] / [place] , Service support , Hip/Pelvis X-Ray 11/08/22 22:35 IMPRESSION: No evidence of displaced pelvic or hip fracture. Electronically Signed: Wilbert Montoya MD at 23:23 EDT , Lumbar Spine X-Ray 11/08/22 22:35 IMPRESSION: Multiple mild compression fractures, age indeterminate Electronically Signed: Wilbert Montoya MD at 23:27 EDT , Discharge Plan Triage Chief Complaint: General Illness ED Provider: Jorge Alberto Chen Dx/Rx/DC Orders Instructions: Compression Fx, ED Peripheral Edema, Bilateral Prescriptions: New lidocaine [Lidoderm] 5 % adhesive patch,medicated 1 patch topical DAILY Qty: 30 0RF Rx Instructions: leave on most painful area for up to 12 hrs oxycodone 5 mg capsule 5 mg PO BID PRN (Reason: pain) 3 Days Qty: 12 0RF No Action potassium chloride [K-Tab] 8 MEQ tablet extended release 16 meq PO BID paroxetine HCl 20 MG tablet 20 mg PO DAILY omeprazole 20 MG capsule 20 mg PO DAILY hydrochlorothiazide 25 MG tablet 25 mg PO DAILY aspirin 81 MG tablet,delayed release (DR/EC) 81 mg PO DAILY Label Comments: follow instructions about stopping ergocalciferol (vitamin D2) 50,000 UNIT capsule 50,000 unit PO QWEEK loratadine 10 MG capsule 10 mg PO DAILY gabapentin 400 mg Capsule 400 mg PO QHS Primary Care Provider: Lizy Crowe Referrals: Lizy Crowe MD [Primary Care Provider] - Leonel Guillermo DO [Med Staff - Active Staff] - As soon as possible Disposition Disposition: Home, Self Care
[2022-11-08] MEDS: Ondansetron 4 MG/2 ML Vial IV (22:07)
[2022-11-08] MEDS: Morphine 4 MG/ML Syringe IV (22:07)
--- NOTE | 2022-11-08 22:35 | RAD_ITS ---
STUDY: X-RAY - LUMBAR SPINE REASON FOR EXAM: Female, 72 years old. back pain TECHNIQUE: 2 view(s) of the lumbar spine were obtained. COMPARISON: None FINDINGS: Normal lumbar lordosis. There is no substantial scoliosis. There is a normal alignment of the vertebrae. Anterior wedging L1, L2 and especially L3 vertebral bodies. Normal disc space heights. The soft tissue structures are unremarkable. RAD/Lumbar Spine 2 or 3 Views IMPRESSION: Multiple mild compression fractures, age indeterminate Electronically Signed: Wilbert Montoya MD at 23:27 EDT ,
--- NOTE | 2022-11-08 22:35 | RAD_ITS ---
INDICATION: pain EXAMINATION/TECHNIQUE: X-RAY - XR Hips Bilateral with Pelvis when performed; 2 Views COMPARISON: None. FINDINGS: PELVIC BONES: No displaced fracture, destructive or sclerotic lesions. Note that overlapping bowel shadows may however obscure fine detail. Sacroiliac joints are unremarkable. No widening of the pubic symphysis. HIPS: The articular structures are unremarkable. No displaced fracture seen in this frontal view. Periarticular ossific density on the right. SOFT TISSUES: No soft tissue swelling or gas. RAD/HIP, UNI W/ Pelvis 2-3 Views IMPRESSION: No evidence of displaced pelvic or hip fracture. Electronically Signed: Wilbert Montoya MD at 23:23 EDT ,
[2022-11-09] MEDS: oxyCODONE 5 MG Tablet PO (00:17)
[2022-11-09] MEDS: Lidocaine 5% Patch 1 PATCH TOPICAL (00:18)
== END 2022-11-09 00:49 | disposition home or self-care (01) ==
PROVIDERS: Emergency Provider Student in an Organized Health Care Education/Training Program; PCP Internal Medicine; Visit Provider Student in an Organized Health Care Education/Training Program
DX: M48.56XA Collapsed vertebra, not elsewhere classified, lumbar region, initial encounter for fracture (principal); M25.552 Pain in left hip; M25.551 Pain in right hip; R60.9 Edema, unspecified; E66.9 Obesity, unspecified; F17.290 Nicotine dependence, other tobacco product, uncomplicated; Z79.82 Long term (current) use of aspirin; Z79.899 Other long term (current) drug therapy
CPT/HCPCS: 71045; 72100; 73502; 80048; 83880; 84484; 85025; 93005; 96374; 96375; 99283; A4216; J2405